=== PATIENT | male | born 1990 | race Caucasian/White ===

== ENCOUNTER 2019-08-14 19:15 | Emergency (ER) | payer BC ==
[2019-08-14] MEDS ORDERED: KETOROLAC 30 MG/ML VIAL IM ONE (19:32)
--- NOTE | 2019-08-14 19:37 | Emergency Department Record ---
History of Present Illness - General Chief Complaint: Knee injury Stated Complaint: RT KNEE INJURY Time Seen by Provider: 08/14/19 19:28 Source: Patient Mode of Arrival: crutches Limitations: No limitations - History of Present Illness Initial Comments: The patient hurt his R knee about 2 hours ago. He was wrestling and went to do a take down and landed on his R knee and felt pain. Since he has been unable to extend the R knee and it has been painful. The patient does have a hx of a meniscal tear in the L knee with similar issues and did need a knee scope. MD Complaint: Knee injury Onset/Timin -: Hour(s) Type of Injury: Unknown Place: Other Severity: Moderate Severity scale (1-10): 6 Improves With: Other Worsens With: Movement, Palpation, Weight bearing Context: Other Associated Symptoms: Unable to bear weight Treatments Prior to Arrival: Other - Related Data Allergies Allergy/AdvReac Type Severity Reaction Status Date / Time No Known Allergies Allergy Unverified 07/15/19 13:59 Travel/Exposure Screening - Travel/Exposure Within Last 30 Days Have you traveled within the last 30 days?: No - Travel/Exposure Within Last Year Have you traveled outside the [place] in the last year?: No - Additonal Travel/Exposure Details Have you been exposed to anyone with a communicable illness?: No - Travel Symptoms Symptom Screening: None Review of Systems Constitutional: Denies: Chills, Fever Past Medical History - SOCIAL HISTORY Smoking Status: Never smoker Alcohol Use: Rare Drug Use: None - RESPIRATORY Hx Respiratory Disorders: Yes Hx Asthma: Yes - CARDIOVASCULAR Hx Cardio Disorders: No - NEURO Hx Neuro Disorders: No - GI Hx GI Disorders: No - Hx Genitourinary Disorders: No - ENDOCRINE Hx Endocrine Disorders: No - MUSCULOSKELETAL Hx Musculoskeletal Disorders: No - PSYCH Hx Psych Problems: No - HEMATOLOGY/ONCOLOGY Hx Hematology/Oncology Disorders: No Family Medical History Any Significant Family History?: No Family Hx Comment (NOT TO BE USED IN PLACE OF ITEMS BELOW): denies Physical Exam - General General Appearance: Alert, Oriented x3, Cooperative, No acute distress - Head Head exam: Atraumatic - Eye Eye exam: Normal appearance - Extremities Extremities exam: Normal capillary refill, Tenderness (There is mild R joint tenderness anteriorly. The R lower leg is NVI with an excellent pulse distally.). negative: Normal inspection (The R knee is held very slightly flexed and is without any effusion. ), Calf tenderness, Full ROM, Joint swelling, Pedal edema - Neurological Neurological exam: Alert. negative: Motor sensory deficit Course Vital Signs 08/14/19 19:23 Temperature 98.4 F Pulse Rate [ 79 Pulse Ox Probe] Respiratory 18 Rate Blood Pressure 144/77 [Left Arm] Pulse Ox 96 - Reevaluation(s) Reevaluation #1: The patient became frustrated due to me ordering an xray of the Knee. I did explain to the patient I would need that to evaluated the knee further and to see if the joint could be subluxed. The patient is only interested in having his meniscus reduced. He stated when that happened in the past at [facility] with the L knee he was sedated and had the L knee injected and some guys did something and reduced it. I explained to him that I am unaware of that procedure but will need an xray prior to being able to possibly attempt to mainipulate the knee. I unfortunately was then pulled out of the room due to having a critical patient that needed immediate care and the patient decided to leave. 08/14/19 20:15 Disposition Disposition: Discharge Clinical Impression: Knee pain, acute Disposition: Against Medical Advice Instructions: Knee Pain (ED) Additional Instructions: I was unable to discuss AMA issues with the patient due to being with a critical patient. The patient decided to elope from the ED. Forms: Patient Portal Access Time of Disposition: 20:18 Quality - Quality Measures Quality Measures: N/A - Blood Pressure Screening View Details: Yes Does Patient Have Any of the Following: No Blood Pressure Classification: Hypertensive Reading Systolic Measurement: 144 Diastolic Measurement: 77 Screening for High Blood Pressure: < First Hypertensive BP, F/U Documented > [[id number]] First Hypertensive Follow-up Interventions: Referral to alternative/primary care provider.
== END 2019-08-14 20:08 | disposition left against medical advice (07) ==
LOC: ER 19:15
DX: M25.561 Pain in right knee (principal)
CPT/HCPCS: 99281